=== PATIENT | female | born 1995 ===

== ENCOUNTER 2017-07-14 20:47 | Emergency (ER) | payer BC, MEDICAID, OTHER ==
[2017-07-14 20:57] VITALS: BP 119/81; PULSE 79; RESP 16; TEMP 98.2; O2SAT 100
[2017-07-14 21:25] LABS: SQUAMOUS EPITHIAL 3 /hpf (0-5); URINE BACTERIA FEW (<OCC); URINE BILIRUBIN NEGATIVE (NEGATIVE); URINE BLOOD NEGATIVE (NEGATIVE); URINE CLARITY Hazy (Clear); URINE COLOR Yellow (YELLOW); URINE GLUCOSE (UA) NORMAL (Normal); URINE LEUKOCYTE ESTERASE NEG Leu/uL (Negative); URINE PROTEIN NEGATIVE (NEGATIVE); URINE UROBILINOGEN NORMAL mg/dL (0.2-1.0)
--- NOTE | 2017-07-14 21:26 | C.PDOC ---
History Of Present Illness 21 year old female presents to the emergency department with a complaint of a right-sided flank pain x2 weeks associated with urinary odor and changes in color. Denies fever, chills, headache, dizziness, CP, SOB, abdominal pain, N/V, vaginal irritation or discharges. Ambulate to ED for evaluation, not in any apparent distress. Time Seen by Provider: 07/14/17 21:03 Chief Complaint (Nursing): Back Pain History Per: Patient History/Exam Limitations: no limitations Onset/Duration Of Symptoms: Days Current Symptoms Are (Timing): Still Present Past Medical History Reviewed: Historical Data, Nursing Documentation, Vital Signs Vital Signs: Last Vital Signs Temp 98.2 F 07/14/17 20:53 Pulse 79 07/14/17 20:53 Resp 16 07/14/17 20:53 BP 119/81 07/14/17 20:53 Pulse Ox 100 07/14/17 21:26 - Medical History PMH: Asthma - [facility] Procedures INJECT/INFUSE NEC (01/09/14) Family History: States: Unknown Family Hx - Social History Hx Tobacco Use: No Hx Alcohol Use: No Hx Substance Use: No - Immunization History Hx Tetanus Toxoid Vaccination: No Hx Influenza Vaccination: Yes Hx Pneumococcal Vaccination: No Review Of Systems Except As Marked, All Systems Reviewed And Found Negative. (As per HPI, otherwise negative) Constitutional: Negative for: Fever, Chills Gastrointestinal: Negative for: Abdominal Pain Genitourinary: Positive for: Other (Urinary odor and changes in color). Negative for: Dysuria, Frequency, Incontinence, Hematuria Musculoskeletal: Positive for: Back Pain (Right flank pain) Physical Exam - Physical Exam Appears: Well, Non-toxic, No Acute Distress Skin: Normal Color, Warm, Dry, No Rash Eye(s): bilateral: PERRL Throat: No Erythema Neck: Trachea Midline, Supple Cardiovascular: Rhythm Regular Respiratory: No Decreased Breath Sounds, No Accessory Muscle Use, No Wheezing Gastrointestinal/Abdominal: Soft, No Tenderness, No Distention, No Guarding, No Rebound Back: No CVA Tenderness, Other (Right flank tenderness) Extremity: Normal ROM, No Swelling Neurological/Psych: Oriented x3, Normal Speech Gait: Steady ED Course And Treatment - Laboratory Results Urine POC: Negative O2 Sat by Pulse Oximetry: 100 (RA) Pulse Ox Interpretation: Normal Progress Note: On re-evaluation, pt is awake, comfortable, not in nay apparent distress. afebrile, hemodynamicaly stable. NOn-toxic. Tolerate po well in ED. PulsEOx 100% RA. ENT: no acute findings. neck: SUpple, (-) meningeal sign. Lungs: CTA B/L, BS equal B/L. CVS: (+)S1S2, reg. Abd: benign, (-) guarding, (- ) rebound. back: (-) CVA tenderness. Neurologicaly intact. UA results review (+) nitrate. Ucx- pending. Pt has clinical findings c/w flank pain, UTI, afebrile. Pt advised on course of ds. Ref. to F/u with PMD in 2-3 days for re- eval. return to ED if any worsening or new changes. Medical Decision Making Medical Decision Making: Time: 2108 --Urine culture --Urine Preg --Urinalysis --Reevaluation Disposition Counseled Patient/Family Regarding: Studies Performed, Diagnosis, Need For Followup, Rx Given - Disposition Referrals: [facility] [Outside] Disposition: HOME/ ROUTINE Disposition Time: 21:47 Condition: STABLE Additional Instructions: Encourage fluids Take medication as prescribed repeat Urinalysis in 2 weeks return to ED at any time if any worsening or new changes. Prescriptions: Nitrofurantoin Macrocrystals [Macrobid] 1 cap PO BID #14 cap Instructions: Urinary Tract Infections in Adults Forms: [facility] (Somali), Work Excuse - Clinical Impression Clinical Impression: UTI (urinary tract infection) - Scribe Statement Scribe Attestation: Documented by Dagmar Moss, acting as a scribe for Shireen Hwang PA-C. ~ Provider Scribe Attestation: All medical record entries made by the Scribe were at my direction and personally dictated by me. I have reviewed the chart and agree that the record accurately reflects my personal performance of the history, physical exam, medical decision making, and the department course for this patient. I have also personally directed, reviewed, and agree with the discharge instructions and disposition.
[2017-07-14 21:36] LABS: HCG,QUALITATIVE URINE NEGATIVE (NEGATIVE)
== END 2017-07-14 22:09 | disposition home or self-care (01) ==
LOC: C.ER 20:47
DX: N39.0 Urinary tract infection, site not specified (principal)

== ENCOUNTER 2018-03-13 20:14 | Emergency (ER) | payer BC, OTHER ==
[2018-03-13 20:27] VITALS: BP 128/79; PULSE 76; RESP 20; TEMP 98.1; O2SAT 99
[2018-03-13] MEDS ORDERED: Naproxen 550 mg Tab PO STA (20:57)
[2018-03-13] MEDS ORDERED: Naproxen 550 mg Tab PO ONE (21:04)
--- NOTE | 2018-03-13 21:45 | C.PDOC ---
History Of Present Illness 22 year old female presents to the ED for evaluation of mid-sternal chest pain that has been intermittent for one month. Patient states her pain is worse with movement and with bending forward. Patient reports she had a similar pain to the same area several months ago, which then spontaneously resolved. Patient reports her pain is worse at night, and also radiates to the left ribcage. She denies fever, chills, cough, shortness of breath, hemoptysis, pleuritic pain, or recent trauma. Time Seen by Provider: 03/13/18 20:35 Chief Complaint (Nursing): Chest Pain History Per: Patient History/Exam Limitations: no limitations Onset/Duration Of Symptoms: Intermittent Episodes, Other (one month ) Current Symptoms Are (Timing): Still Present Quality: "Pain" Additional History Per: Patient Past Medical History Reviewed: Historical Data, Nursing Documentation, Vital Signs Vital Signs: Last Vital Signs Temp 98.1 F 03/13/18 20:24 Pulse 76 03/13/18 20:24 Resp 20 03/13/18 20:24 BP 128/79 03/13/18 20:24 Pulse Ox 99 03/13/18 20:24 - Medical History PMH: Asthma Surgical History: No Surg Hx - [facility] Procedures INJECT/INFUSE NEC (01/09/14) Family History: States: Unknown Family Hx - Social History Hx Tobacco Use: No Hx Alcohol Use: No Hx Substance Use: No - Immunization History Hx Tetanus Toxoid Vaccination: No Hx Influenza Vaccination: Yes Hx Pneumococcal Vaccination: No Review Of Systems Constitutional: Negative for: Fever, Chills Cardiovascular: Positive for: Chest Pain Respiratory: Negative for: Cough, Shortness of Breath, Hemoptysis, Other (pleuritic pain ) Musculoskeletal: Positive for: Other (left ribcage pain ) Physical Exam - Physical Exam Appears: Non-toxic, No Acute Distress Skin: Normal Color, Warm, Dry, No Rash Head: Atraumatic, Normacephalic Eye(s): bilateral: Normal Inspection, PERRL, EOMI Oral Mucosa: Moist Throat: No Erythema, No Exudate Neck: Normal ROM, Supple Chest: Symmetrical, No Deformity, Tenderness (anterior aspect of chest wall ) Cardiovascular: Rhythm Regular, No Friction Rub, No Murmur Respiratory: Normal Breath Sounds, No Rales, No Rhonchi, No Wheezing Gastrointestinal/Abdominal: Soft, No Tenderness, No Guarding, No Rebound Back: Normal Inspection, No CVA Tenderness, No Vertebral Tenderness, No Paraspinal Tenderness Extremity: Normal ROM, Capillary Refill (less than 2 seconds ), No Swelling Neurological/Psych: Oriented x3, Normal Speech, Normal Cognition Gait: Steady ED Course And Treatment ECG: Interpreted By Me ECG Rhythm: Sinus Rhythm ECG Interpretation: Normal, No Acute Changes Interpretation Of ECG: normal axis Rate From EC (bpm) O2 Sat by Pulse Oximetry: 99 (on RA) Pulse Ox Interpretation: Normal - Radiology CXR: Interpreted by Me CXR Interpretation: Yes: No Acute Disease, Heart Size (normal). No: Infiltrates, Pnemothorax Medical Decision Making Medical Decision Making: Progress: CXR ordered and reviewed. Flexeril PO and Naproxen PO given. Disposition - Disposition Referrals: Jake Ness MD [Medical Doctor] - Disposition: HOME/ ROUTINE Disposition Time: 21:42 Condition: GOOD Additional Instructions: Follow up with the medical doctor within 1-2 days. Return if worsened. 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 - Scribe Statement The provider has reviewed the documentation as recorded by the Scribe (Tonya Daley) All medical record entries made by the Scribe were at my direction and personally dictated by me. I have reviewed the chart and agree that the record accurately reflects my personal performance of the history, physical exam, medical decision making, and the department course for this patient. I have also personally directed, reviewed, and agree with the discharge instructions and disposition.
--- NOTE | 2018-03-14 10:23 | RAD ---
HISTORY: chest pain, pleuritic pain COMPARISON: None available. TECHNIQUE: Chest PA and lateral FINDINGS: LUNGS: No focal consolidation. Please note that chest x-ray has limited sensitivity for the detection of pulmonary masses. PLEURA: No significant pleural effusion identified. No definite pneumothorax . CARDIOVASCULAR: Heart size appears within normal limits. No atherosclerotic calcification present. OSSEOUS STRUCTURES: No acute osseous abnormality identified. VISUALIZED UPPER ABDOMEN: Unremarkable. OTHER FINDINGS: None. IMPRESSION: No focal consolidation.
== END 2018-03-13 22:09 | disposition home or self-care (01) ==
LOC: C.ER 20:14
DX: M94.0 Chondrocostal junction syndrome [Tietze] (principal)